=== PATIENT | male | born 1995 | race Two or more races ===

== ENCOUNTER → 2021-09-15 | Emergency (ER) | payer MEDICAID, OTHER ==
[~2021-09-15] VITALS: Ht 177.8 cm; Wt 90.7 kg
[~2021-09-15] MED LIST: cefTRIAXone SOD 1,000 MG VL IM ONE
[2021-09-15 02:27] LABS: Urine Bacteria NONE SEEN /hpf (None Seen); Urine Blood Negative /uL (Negative); Urine Specific Gravity 1.026 (1.001-1.035); Urine WBC <1 /hpf (0 - 3)
[2021-09-15 02:55] VITALS: BP 140/91
== END | disposition home or self-care (01) ==
LOC: ER 00:39
DX: N48.22 Cellulitis of corpus cavernosum and penis (principal)
CPT/HCPCS: 81001; 96372; 99283; J0696